=== PATIENT | female | born 1950 | race Asian ===

== ENCOUNTER 2017-07-02 09:22 | Emergency (ER) | payer OTHER, MEDICARE ==
[2017-07-02 09:32] VITALS: BP 154/90; PULSE 96; TEMP 97.8; BMI 18.0
--- NOTE | 2017-07-02 10:15 | PDOC ---
History of Present Illness - General Chief Complaint: Injury Stated Complaint: FALL Time Seen by Provider: 07/02/17 09:45 History Source: Patient Exam Limitations: No Limitations - History of Present Illness Initial Comments: 07/02/17 10:10 67 yr female slipped on ice and fell injured her head and left shoulder no LOC. pt c/o dizzyness no vomiting or nausea. Pt has full range of motion to the left shoulder . no bony tenderness. Occurred: reports: this morning Severity: reports: moderate Pain Location: reports: head, upper extremity (left shoulder) Method of Injury: Yes: fall (slip on ice and fall ) Associated Symptoms (Fall): headache Past History - Past Medical History Allergies/Adverse Reactions: Allergies Allergy/AdvReac Type Severity Reaction Status Date / Time egg Allergy Verified 07/02/17 09:31 milk Allergy Verified 07/02/17 09:31 Home Medications: Ambulatory Orders Metformin HCl [Glucophage] 500 mg PO BID 07/02/17 Simvastatin [Zocor -] 20 mg PO HS 07/02/17 COPD: No Diabetes: Yes - Surgical History Appendectomy: Yes - Suicide/Smoking/Psychosocial Hx Smoking History: Never smoked Information on smoking cessation initiated: No Hx Alcohol Use: No Drug/Substance Use Hx: No Substance Use Type: None *Physical Exam - Vital Signs Last Vital Signs Temp Pulse Resp BP Pulse Ox 97.8 F 96 H 18 154/90 98 07/02/17 09:29 07/02/17 09:29 07/02/17 09:29 07/02/17 09:29 07/02/17 09:29 - Physical Exam General Appearance: Yes: Nourished, Appropriately Dressed HEENT: positive: EOMI, JOELLE, Normal ENT Inspection Neck: positive: Supple. negative: Tender lateral, Tender midline Respiratory/Chest: positive: Lungs Clear, Normal Breath Sounds Cardiovascular: positive: Regular Rhythm, Regular Rate Gastrointestinal/Abdominal: positive: Normal Bowel Sounds, Soft Musculoskeletal: positive: Normal Inspection Extremity: positive: Normal Capillary Refill, Normal Inspection, Normal Range of Motion, Tender (posterior left shoulder ) Integumentary: positive: Normal Color, Dry, Warm, Other (hematoma to occiptal scalp ) Neurologic: positive: Fully Oriented, Alert, Normal Mood/Affect, Normal Response , Motor Strength 5/5 ED Treatment Course - RADIOLOGY Radiology Studies Ordered: Category Date Time Status HEAD CT WITHOUT CONTRAST [CT] Stat CT Scan 07/02/17 09:59 Ordered SHOULDER-LEFT [RAD] Stat Radiology 07/02/17 09:59 Ordered Medical Decision Making - Medical Decision Making 07/02/17 11:31 cc: slip and fall hit back of head no loc no dizzyness or vomiting c/o pain to sacrall area and left shoulder will get xrays and head ct pt has hematoma to the back of her head approximately 5cm neg neck pain steady gait Aox3 *DC/Admit/Observation/Transfer Diagnosis at time of Disposition: Contusion of buttock Head injury due to trauma Qualifiers: Encounter type: initial encounter Qualified Code(s): S09.90XA - Unspecified injury of head, initial encounter - Discharge Dispostion Disposition: HOME Condition at time of disposition: Improved - Referrals Referrals: Tania Landry [Primary Care Provider] - - Patient Instructions Additional Instructions: follow with your doctor in 24-28hrs for follow up visit apply ice every 2hrs for 20 minutes to the back of your head while awake avoid any alcohol for the next 48hrs take tylenol or aleve as directed for pain return to ER for any worsening symptoms , vomiting, severe headache unsteady gait or any other concerning symptoms - Post Discharge Activity
== END 2017-07-02 11:45 | disposition home or self-care (01) ==
LOC: JERFT 09:22
DX: S30.0XXA Contusion of lower back and pelvis, initial encounter (principal); W00.0XXA Fall on same level due to ice and snow, initial encounter; Y93.89 Activity, other specified; Y92.9 Unspecified place or not applicable; S09.90XA Unspecified injury of head, initial encounter
CPT/HCPCS: 70450-TC; 72220-TC-FY; 73030-TC-LT-FY; 99281-25

== ENCOUNTER 2024-01-07 17:50 | Emergency (ER) | payer OTHER, MEDICARE ==
[2024-01-07 18:01] VITALS: RESP 18; BMI 18.8
[2024-01-07] MEDS ORDERED: ACETAMINOPHEN INJECTION 100 ML IVPB ONE (19:47)
[2024-01-07] MEDS ORDERED: KETOROLAC TROMETHAMINE 30 MG/1 ML VIAL IM ONE (19:48)
[2024-01-07] MEDS ORDERED: KETOROLAC TROMETHAMINE 15 MG/ML VIAL ONE (19:58)
[2024-01-07] MEDS: SODIUM CHLORIDE 1,000 ML IV STA (20:00)
[2024-01-07] MEDS: KETOROLAC TROMETHAMINE 15 MG/ML VIAL IVPUSH ONE (20:00)
[2024-01-07] MEDS: ACETAMINOPHEN 1000 MG/100 ML BAG IVPB ONE (20:01)
[2024-01-07 20:12] LABS: BASO % 0.1 % (0-2.0); HEMATOCRIT 36.9 % (32.4-45.2); HEMOGLOBIN 12.6 GM/dL (10.7-15.3); MCH 30.9 pg (25.7-33.7); MCHC 34.1 g/dl (32.0-36.0); MEAN CELL VOLUME 90.4 fl (80-96); MONO % 3.4 % (3.8-10.2); NEUT % 84.5 % (42.8-82.8); PLATELET COUNT 254 10^3/uL (134-434); RBC 4.08 M/mm3 (3.60-5.2); RDW 13.9 % (11.6-15.6); WHITE BLOOD COUNT 10.2 K/mm3 (4.0-10.0)
[2024-01-07] MEDS ORDERED: morphine SULFATE 4 MG/ML VIAL ONE (20:14)
[2024-01-07] MEDS: morphine CARPU-JECT 4 MG/1 ML DISP.SYRIN IVPUSH ONE (20:23)
[2024-01-07 20:30] LABS: EPI CELLS 26 /uL (0-25.1); HYALINE CASTS 0 /uL (0-3.1); URINE APPEARANCE CLOUDY; URINE BACTERIA 50 /uL (0-1359); URINE BILIRUBIN NEGATIVE (NEGATIVE); URINE COLOR RED; URINE GLUCOSE (UA) 3+ (NEGATIVE); URINE KETONE 1+ (NEGATIVE); URINE LEUK ESTERASE 1+ (NEGATIVE); URINE NITRITE NEGATIVE (NEGATIVE); URINE PROTEIN 1+ (NEGATIVE); URINE RBC 9633 /uL (0-23.9); URINE UROBILINOGEN 0.2 mg/dL (0.2-1.0); URINE WBC 68 /uL (0-25.8)
[2024-01-07 20:32] LABS: POTASSIUM 4.8 mmol/L (3.5-5.1)
[2024-01-07 20:34] LABS: BLOOD UREA NITROGEN 40.4 mg/dL (7-18); CALCIUM 9.7 mg/dL (8.5-10.1)
[2024-01-07 20:35] LABS: ALBUMIN 4.3 g/dl (3.4-5.0)
[2024-01-07 20:38] LABS: CREATININE 1.3 mg/dL (0.55-1.3)
[2024-01-07 20:39] LABS: BILIRUBIN,TOTAL 0.5 mg/dL (0.2-1); TOT PROT 7.7 g/dl (6.4-8.2)
[2024-01-08 01:14] VITALS: BP 125/69; PULSE 92; TEMP 98.1
== END 2024-01-08 01:53 | disposition home or self-care (01) ==
LOC: JER 17:50
PROC: 3E0333Z Introduction of Anti-inflammatory into Peripheral Vein, Percutaneous Approach (ICD-10-PCS; principal; 2024-01-07)
PROC: 3E033NZ Introduction of Analgesics, Hypnotics, Sedatives into Peripheral Vein, Percutaneous Approach (ICD-10-PCS; 2024-01-07)
PROC: 3E0337Z Introduction of Electrolytic and Water Balance Substance into Peripheral Vein, Percutaneous Approach (ICD-10-PCS; 2024-01-07)
DX: N13.2 Hydronephrosis with renal and ureteral calculous obstruction (principal); R30.0 Dysuria; R10.12 Left upper quadrant pain; R10.32 Left lower quadrant pain; R31.9 Hematuria, unspecified; R11.2 Nausea with vomiting, unspecified
CPT/HCPCS: 36415; 74176-TC; 80053; 81003; 85025; 87086; 99284-25